=== PATIENT | female | born 1960 | race American Indian/Alaskan Native ===

== ENCOUNTER 2017-06-05 18:09 | Emergency (ER) | payer OTHER ==
[2017-06-05] MEDS ORDERED: MOTRIN PO ONE (20:42)
[2017-06-05] MEDS ORDERED: TESSALON PERLES PO ONE (20:42)
[2017-06-05] MEDS ORDERED: DUONEB *Not for PRN Use IH ONE (21:32)
--- NOTE | 2017-06-05 21:36 | Emergency Department Report ---
- General Chief Complaint: Upper Respiratory Infection Stated Complaint: FLI LIKE SX Time Seen by Provider: 06/05/17 20:42 Source: patient Mode of arrival: Ambulatory Limitations: No Limitations - History of Present Illness Initial Comments: This is a 56-year-old female nontoxic, well nourished in appearance, no acute signs of distress presents to the ED with c/o of nonproductive cough, body aches , rhinorrhea, fever, chills, wheezing, nasal congestion x2 days. Patient denies any recent travels, long car, recent hospital stays. Patient denies any calf pain or calf tenderness. Patient denies any chest pain, short of breath, fever, chills, nausea, vomiting, hemoptysis, numbness, tingling, headache or stiff neck. Patient denies any drug allergies. Patient stated PMH includes COPD. Denies any drug allergies. MD Complaint: fever, cough, rhinorrhea, nasal congestion, other (body aches, wheezing) -: days(s) (2) Severity: mild Severity scale (0 -10): 8 Quality: aching Consistency: constant Improves With: nothing Worsens With: nothing Associated Symptoms: fever, chills, rhinorrhea, nasal congestion, cough. denies : myalgias, diaphoresis, headache, sore throat, stiff neck, chest pain, shortness of breath, abdominal pain, nausea, vomiting, diarrhea, dysuria, rash, confusion, right sweats, weight loss, epistaxis, hoarseness, ear pain Treatments Prior to Arrival: none - Related Data Previous Rx's Medication Instructions Recorded Last Taken Type Albuterol Sulfate [Ventolin HFA] 2 puff IH Q4H PRN #1 hfa.aer.ad 08/10/14 Unknown Rx Ipratropium/Albuterol Sulfate 1 ampul IH Q6HRT PRN #30 ampul.neb 08/10/14 Unknown Rx [DUONEB *Not for PRN Use*] Nicotine [Habitrol] 14 mg TD QDAY #7 patch 08/10/14 Unknown Rx Prednisone 20 mg PO QDAY #5 tablet 08/10/14 Unknown Rx Tiotropium [Spiriva] 18 mcg IH QDAY 30 Days box 08/10/14 Unknown Rx HYDROcodone/APAP 7.5-325 [[place] 1 each PO Q8HR PRN #12 tablet 02/27/16 Unknown Rx 7.5-325 mg TAB] ALBUTEROL Inhaler [ProAir HFA 2 puff IH QID PRN #1 inhalation 06/05/17 Unknown Rx Inhaler] Azithromycin [Zithromax Z-LAURI] 250 mg PO DAILY #6 tablet 06/05/17 Unknown Rx Benzonatate [Tessalon Perle] 100 mg PO Q6H PRN #20 capsule 06/05/17 Unknown Rx Ibuprofen [Motrin] 600 mg PO Q8H PRN #30 tablet 06/05/17 Unknown Rx Oseltamivir [Tamiflu] 75 mg PO BID #14 cap 06/05/17 Unknown Rx predniSONE [Deltasone] 40 mg PO QDAY #5 tab 06/05/17 Unknown Rx Allergies Allergy/AdvReac Type Severity Reaction Status Date / Time No Known Allergies Allergy Verified 08/08/14 10:17 ED Review of Systems ROS: Stated complaint: FLI LIKE SX Other details as noted in HPI Constitutional: chills, fever Eyes: denies: eye pain, eye discharge, vision change ENT: denies: ear pain, throat pain Respiratory: cough, wheezing. denies: shortness of breath Cardiovascular: denies: chest pain, palpitations Endocrine: no symptoms reported Gastrointestinal: denies: abdominal pain, nausea, diarrhea Genitourinary: denies: urgency, dysuria, discharge Musculoskeletal: denies: back pain, joint swelling, arthralgia Skin: denies: rash, lesions Neurological: denies: headache, weakness, paresthesias Psychiatric: denies: anxiety, depression Hematological/Lymphatic: denies: easy bleeding, easy bruising ED Past Medical Hx - Past Medical History Previous Medical History?: Yes Hx Congestive Heart Failure: No Hx Diabetes: No Hx of Cancer: Yes (cervical) Hx Asthma: No Hx COPD: Yes Additional medical history: BRONCHITIS - Surgical History Past Surgical History?: Yes Additional Surgical History: HYSTERECTOMY - Social History Smoking Status: Current Every Day Smoker Substance Use Type: Marijuana - Medications Home Medications: Home Medications Medication Instructions Recorded Confirmed Last Taken Type Albuterol Sulfate [Ventolin HFA] 2 puff IH Q4H PRN #1 hfa.aer.ad 08/10/14 Unknown Rx Ipratropium/Albuterol Sulfate 1 ampul IH Q6HRT PRN #30 ampul.neb 08/10/14 Unknown Rx [DUONEB *Not for PRN Use*] Nicotine [Habitrol] 14 mg TD QDAY #7 patch 08/10/14 Unknown Rx Prednisone 20 mg PO QDAY #5 tablet 08/10/14 Unknown Rx Tiotropium [Spiriva] 18 mcg IH QDAY 30 Days box 08/10/14 Unknown Rx HYDROcodone/APAP 7.5-325 [[place] 1 each PO Q8HR PRN #12 tablet 02/27/16 Unknown Rx 7.5-325 mg TAB] ALBUTEROL Inhaler [ProAir HFA 2 puff IH QID PRN #1 inhalation 06/05/17 Unknown Rx Inhaler] Azithromycin [Zithromax Z-LAURI] 250 mg PO DAILY #6 tablet 06/05/17 Unknown Rx Benzonatate [Tessalon Perle] 100 mg PO Q6H PRN #20 capsule 06/05/17 Unknown Rx Ibuprofen [Motrin] 600 mg PO Q8H PRN #30 tablet 06/05/17 Unknown Rx Oseltamivir [Tamiflu] 75 mg PO BID #14 cap 06/05/17 Unknown Rx predniSONE [Deltasone] 40 mg PO QDAY #5 tab 06/05/17 Unknown Rx ED Physical Exam - General Limitations: No Limitations General appearance: alert, in no apparent distress - Head Head exam: Present: atraumatic, normocephalic, normal inspection - Eye Eye exam: Present: normal appearance, PERRL, EOMI. Absent: scleral icterus, conjunctival injection, nystagmus, periorbital swelling, periorbital tenderness Pupils: Present: normal accommodation - ENT ENT exam: Present: normal exam, normal orophraynx, mucous membranes moist, TM's normal bilaterally, normal external ear exam - Neck Neck exam: Present: normal inspection, full ROM. Absent: tenderness, meningismus, lymphadenopathy, thyromegaly - Respiratory Respiratory exam: Present: normal lung sounds bilaterally, wheezes (bilateral upper and lower lobes). Absent: respiratory distress, rales, rhonchi, stridor, chest wall tenderness, accessory muscle use, decreased breath sounds, prolonged expiratory - Cardiovascular Cardiovascular Exam: Present: regular rate, normal rhythm, tachycardia, normal heart sounds. Absent: irregular rhythm, systolic murmur, diastolic murmur, rubs , gallop - GI/Abdominal GI/Abdominal exam: Present: soft, normal bowel sounds. Absent: distended, tenderness, guarding, rebound, rigid, diminished bowel sounds - Rectal Rectal exam: Present: deferred - Extremities Exam Extremities exam: Present: normal inspection, full ROM, normal capillary refill. Absent: tenderness, pedal edema, joint swelling, calf tenderness - Back Exam Back exam: Present: normal inspection, full ROM. Absent: tenderness, CVA tenderness (R), CVA tenderness (L), muscle spasm, paraspinal tenderness, vertebral tenderness, rash noted - Neurological Exam Neurological exam: Present: alert, oriented X3, CN II-XII intact, normal gait, reflexes normal - Psychiatric Psychiatric exam: Present: normal affect, normal mood - Skin Skin exam: Present: warm, dry, intact, normal color. Absent: rash ED Course Vital Signs 06/05/17 06/05/17 06/05/17 18:28 21:18 21:48 Temperature 100.4 F H Pulse Rate 91 H Pulse Rate [ 77 Anterior Bilateral Throughout] Respiratory 20 18 Rate Respiratory 20 Rate [Anterior Bilateral Throughout] Blood Pressure 149/69 Blood Pressure [Right] O2 Sat by Pulse 99 Oximetry 06/05/17 23:26 Temperature 100.0 F H Pulse Rate 76 Pulse Rate [ Anterior Bilateral Throughout] Respiratory 16 Rate Respiratory Rate [Anterior Bilateral Throughout] Blood Pressure Blood Pressure 115/54 [Right] O2 Sat by Pulse 96 Oximetry - Reevaluation(s) Reevaluation #1: 06/05/17 21:36 Patient is speaking in full sentences with no signs of distress noted. ED Medical Decision Making - Lab Data Result diagrams: 06/05/17 21:35 06/05/17 21:35 - Medical Decision Making This is a 56-year-old female that presents with upper respiratory infection and asthma exacerbation. Patient is stable and was examined by me. Chest x-ray has been obtained and dictated by radiologist with normal exam. Patient is notified of x-ray results with no questions noted. Labs within normal limits. PAtient stated feels much better after DuoNeb and Solu-Medrol and wheezing has subsided upon auscultation post medical treatment. Due to patient having symptoms of influenza and upper respiratory infection I will treat patient empirically with Tamiflu and zpak. Patient was instructed to increase hydration , rest and take Motrin for fever episodes. Patient received Motrin and tesslone perrls in the ED. Vitals stable. Patient is nonfebrile and normal heart rate. Patient was orally hydrated and patient tolerated well known nausea or vomiting. Patient was instructed Follow-up with a primary care doctor in 3- 5 days or if symptoms worsen and continue return to emergency room as soon as possible. At time time of discharge, the patient does not seem toxic or ill in appearance. No acute signs of distress noted. Patient agrees to discharge treatment plan of care. No further questions noted by the patient. Critical care attestation.: If time is entered above; I have spent that time in minutes in the direct care of this critically ill patient, excluding procedure time. ED Disposition Clinical Impression: Influenza Upper respiratory infection Qualifiers: URI type: unspecified URI Qualified Code(s): J06.9 - Acute upper respiratory infection, unspecified Asthma exacerbation Qualifiers: Asthma severity: mild Asthma persistence: unspecified Qualified Code(s): J45.901 - Unspecified asthma with (acute) exacerbation Disposition: TO HOME OR SELFCARE Is pt being admited?: No Does the pt Need Aspirin: No Condition: Stable Instructions: Asthma (ED), Influenza (ED), Upper Respiratory Infection (ED) Additional Instructions: Follow-up with a primary care doctor in 3-5 days or if symptoms worsen and continue return to emergency room as soon as possible. Increase rest, hydration and take Motrin for fever episodes. Prescriptions: ALBUTEROL Inhaler [ProAir HFA Inhaler] 2 puff IH QID PRN #1 inhalation PRN Reason: Shortness Of Breath Azithromycin [Zithromax Z-LAURI] 250 mg PO DAILY #6 tablet Benzonatate [Tessalon Perle] 100 mg PO Q6H PRN #20 capsule PRN Reason: Cough Ibuprofen [Motrin] 600 mg PO Q8H PRN #30 tablet PRN Reason: Fever Oseltamivir [Tamiflu] 75 mg PO BID #14 cap predniSONE [Deltasone] 40 mg PO QDAY #5 tab Referrals: PRIMARY CAREMD [Primary Care Provider] - 3-5 Days HEMAL CORTEZ MD [Staff Physician] - 3-5 Days [facility] [Outside] - 3-5 Days [facility] [Outside] - 3-5 Days Forms: Work/School Release Form(ED)
[2017-06-05 21:47] LABS: Hematocrit 40.3 % (30.3-42.9); Hemoglobin 14.1 gm/dl (10.1-14.3); Mean Corpuscular HGB Conc 35 % (30-34); Mean Corpuscular Hemoglobin 29 pg (28-32); Mean Corpuscular Volume 82 fl (79-97); Platelet Count 186 K/mm3 (140-440); Red Blood Count 4.89 M/mm3 (3.65-5.03); Red Cell Distribution Width 14.6 % (13.2-15.2)
--- NOTE | 2017-06-05 22:02 | XRay Report ---
FINAL REPORT EXAM: XR CHEST ROUTINE 2V HISTORY: cough TECHNIQUE: Two view chest PA and lateral PRIORS: None. FINDINGS: Cardiac and mediastinal contours are unremarkable. No focal pulmonary infiltrate is identified. No pleural fluid collection seen. Pulmonary vasculature is unremarkable. IMPRESSION: Negative two-view chest
[2017-06-05 22:04] LABS: BUN/Creatinine Ratio 17; Blood Urea Nitrogen 10 mg/dL (7-17); Calcium 9.1 mg/dL (8.4-10.2); Hemolysis Index 1
[2017-06-05 22:54] LABS: Basophils % (Manual) 0 % (0.0-1.8); Eosinophils % (Manual) 0 % (0.0-4.3); Total Cells Counted 100
[2017-06-05 22:55] LABS: Anisocytosis 1+; Platelet Estimate Consistent w Auto; Poikilocytosis Few
[2017-06-05 23:26] VITALS: BP 115/54
[2017-06-05] MEDS ORDERED: TYLENOL PO ONE (23:28)
== END 2017-06-06 00:40 | disposition home or self-care (01) ==
LOC: ED 18:09
DX: J11.1 Influenza due to unidentified influenza virus with other respiratory manifestations (principal); J45.901 Unspecified asthma with (acute) exacerbation; J06.9 Acute upper respiratory infection, unspecified; F17.200 Nicotine dependence, unspecified, uncomplicated; F12.10 Cannabis abuse, uncomplicated
CPT/HCPCS: 36415; 71046; 80048; 82140; 82550; 85007; 85025; 94640; 96372; 99284; J2930

== ENCOUNTER 2018-07-08 08:16 | Inpatient (IN) | payer OTHER ==
[2018-07-08] MEDS ORDERED: PROVENTIL IH ONE ×2 (08:30→08:40)
[2018-07-08] MEDS ORDERED: ATROVENT IH ONE ×2 (08:30→08:40)
[2018-07-08] MEDS ORDERED: MAGNESIUM SULFATE 2GM/50ML 2 GM/50 ML BAG IV ONE ×2 (08:30→08:40)
--- NOTE | 2018-07-08 08:50 | XRay Report ---
AP CHEST :07/08/18 08:16:00 CLINICAL: Difficulty breathing. Productive cough. COMPARISON:08/08/14 FINDINGS: Normal heart and pulmonary vasculature. The lungs are normally expanded and clear. The bones and soft tissues are normal. IMPRESSION: No acute cardiopulmonary process.
--- NOTE | 2018-07-08 09:16 | Emergency Department Report ---
ED General Adult HPI - General Chief complaint: Adult Asthma Stated complaint: DIFFICULTY BREATHING Time Seen by Provider: 07/08/18 08:45 Source: patient, EMS Mode of arrival: Stretcher Limitations: No Limitations - History of Present Illness Initial comments: Patient presents to emergency department with difficulty in breathing. Patient has a history of COPD and states his symptoms started last night. Patient endorses multiple sick contacts at home and include her grandchildren who go to daycare. Patient received 1 albuterol treatment and Solu-Medrol in route via EMS. Patient reports just generally not feeling well. Patient denies chest pain, abdominal pain, headache. Patient is using accessory muscles to breathe and the wheezing is audible when entering room. Patient states she is using her nebulizer every 4 hours at home to no Avail -: Gradual Severity scale (0 -10): 0 Consistency: constant Improves with: none Worsens with: none Associated Symptoms: denies other symptoms Treatments Prior to Arrival: none - Related Data Previous Rx's Medication Instructions Recorded Last Taken Type Ipratropium/Albuterol Sulfate 1 ampul IH Q6HRT PRN #30 ampul.neb 08/10/14 Unknown Rx [DUONEB *Not for PRN Use*] ALBUTEROL Inhaler (OR & NICU) 2 puff IH QID PRN #1 inhalation 06/05/17 Unknown Rx [ProAir HFA Inhaler] Allergies Allergy/AdvReac Type Severity Reaction Status Date / Time No Known Allergies Allergy Verified 08/08/14 10:17 ED Review of Systems ROS: Stated complaint: DIFFICULTY BREATHING Other details as noted in HPI Comment: All other systems reviewed and negative Constitutional: denies: chills, fever Eyes: denies: eye pain, eye discharge, vision change ENT: denies: ear pain, throat pain Respiratory: wheezing. denies: cough, shortness of breath Cardiovascular: denies: chest pain, palpitations Endocrine: no symptoms reported Gastrointestinal: denies: abdominal pain, nausea, diarrhea Genitourinary: denies: urgency, dysuria, discharge Musculoskeletal: denies: back pain, joint swelling, arthralgia Skin: denies: rash, lesions Neurological: denies: headache, weakness, paresthesias Psychiatric: denies: anxiety, depression Hematological/Lymphatic: denies: easy bleeding, easy bruising ED Past Medical Hx - Past Medical History Previous Medical History?: Yes Hx Congestive Heart Failure: No Hx Diabetes: No Hx Asthma: Yes Hx COPD: Yes Additional medical history: BRONCHITIS - Surgical History Past Surgical History?: Yes Additional Surgical History: HYSTERECTOMY - Social History Smoking Status: Former Smoker Substance Use Type: None - Medications Home Medications: Home Medications Medication Instructions Recorded Confirmed Last Taken Type Ipratropium/Albuterol Sulfate 1 ampul IH Q6HRT PRN #30 ampul.neb 08/10/14 07/08/18 Unknown Rx [DUONEB *Not for PRN Use*] ALBUTEROL Inhaler (OR & NICU) 2 puff IH QID PRN #1 inhalation 06/05/17 07/08/18 Unknown Rx [ProAir HFA Inhaler] ED Physical Exam - General Limitations: No Limitations General appearance: alert, in no apparent distress - Head Head exam: Present: atraumatic, normocephalic - Eye Eye exam: Present: normal appearance, PERRL, EOMI - ENT ENT exam: Present: mucous membranes moist - Neck Neck exam: Present: normal inspection - Respiratory Respiratory exam: Present: normal lung sounds bilaterally, wheezes. Absent: respiratory distress, rales, rhonchi - Cardiovascular Cardiovascular Exam: Present: regular rate, normal rhythm. Absent: systolic murmur, diastolic murmur, rubs, gallop - GI/Abdominal GI/Abdominal exam: Present: soft, normal bowel sounds - Extremities Exam Extremities exam: Present: normal inspection - Back Exam Back exam: Present: normal inspection - Neurological Exam Neurological exam: Present: alert, oriented X3, CN II-XII intact. Absent: motor sensory deficit - Psychiatric Psychiatric exam: Present: normal affect, normal mood - Skin Skin exam: Present: warm, dry, intact, normal color. Absent: rash ED Course Vital Signs 07/08/18 07/08/18 07/08/18 08:17 08:42 09:30 Temperature 98.2 F Pulse Rate 73 68 Respiratory 30 H 30 H 24 Rate Blood Pressure 127/73 Blood Pressure 139/66 [Left] O2 Sat by Pulse 97 98 97 Oximetry 07/08/18 07/08/18 10:20 11:42 Temperature Pulse Rate 67 66 Respiratory 18 24 Rate Blood Pressure Blood Pressure 134/69 121/65 [Left] O2 Sat by Pulse 98 99 Oximetry ED Medical Decision Making - Lab Data Result diagrams: 07/08/18 09:23 07/08/18 09:23 Lab Results 07/08/18 07/08/18 Range/Units 09:23 09:23 WBC 9.8 (4.5-11.0) K/mm3 RBC 5.07 H (3.65-5.03) M/mm3 Hgb 14.5 H (10.1-14.3) gm/dl Hct 41.6 (30.3-42.9) % MCV 82 (79-97) fl MCH 29 (28-32) pg MCHC 35 H (30-34) % RDW 13.9 (13.2-15.2) % Plt Count 240 (140-440) K/mm3 Lymph % (Auto) 13.8 (13.4-35.0) % [place] % (Auto) 4.4 (0.0-7.3) % Eos % (Auto) 0.1 (0.0-4.3) % Baso % (Auto) 0.1 (0.0-1.8) % Lymph # 1.4 (1.2-5.4) K/mm3 [place] # 0.4 (0.0-0.8) K/mm3 Eos # 0.0 (0.0-0.4) K/mm3 Baso # 0.0 (0.0-0.1) K/mm3 Seg Neutrophils % 81.6 H (40.0-70.0) % Seg Neutrophils # 8.0 H (1.8-7.7) K/mm3 Sodium 138 (137-145) mmol/L Potassium 3.2 L (3.6-5.0) mmol/L Chloride 100.2 (98-107) mmol/L Carbon Dioxide 25 (22-30) mmol/L Anion Gap 16 mmol/L BUN 7 (7-17) mg/dL Creatinine 0.6 L (0.7-1.2) mg/dL Estimated GFR > 60 ml/min BUN/Creatinine Ratio 12 % Glucose 136 H (65-100) mg/dL Calcium 9.0 (8.4-10.2) mg/dL Magnesium 2.70 H (1.7-2.3) mg/dL Total Bilirubin 1.10 (0.1-1.2) mg/dL AST 17 (5-40) units/L ALT 8 (7-56) units/L Alkaline Phosphatase 73 (35-129) units/L Total Protein 6.9 (6.3-8.2) g/dL Albumin 0.2 L (3.9-5) g/dL Albumin/Globulin Ratio 0.0 % - Radiology Data Radiology results: report reviewed Critical care attestation.: If time is entered above; I have spent that time in minutes in the direct care of this critically ill patient, excluding procedure time. ED Disposition Clinical Impression: COPD exacerbation Disposition: OP ADMIT IP TO THIS HOSP Is pt being admited?: Yes Does the pt Need Aspirin: No Condition: Stable Instructions: Chronic Obstructive Pulmonary Disease (ED) Referrals: BAYLEE ROMERO MD [Referring] - 3-5 Days
[2018-07-08 09:39] LABS: Basophils % (Auto) 0.1 % (0.0-1.8); Eosinophils % (Auto) 0.1 % (0.0-4.3); Hematocrit 41.6 % (30.3-42.9); Hemoglobin 14.5 gm/dl (10.1-14.3); Lymphocytes # (Auto) 1.4 K/mm3 (1.2-5.4); Lymphocytes % (Auto) 13.8 % (13.4-35.0); Mean Corpuscular HGB Conc 35 % (30-34); Mean Corpuscular Volume 82 fl (79-97); Monocytes # (Auto) 0.4 K/mm3 (0.0-0.8); Monocytes % (Auto) 4.4 % (0.0-7.3); Platelet Count 240 K/mm3 (140-440); Red Blood Count 5.07 M/mm3 (3.65-5.03); Red Cell Distribution Width 13.9 % (13.2-15.2)
[2018-07-08 09:56] LABS: Alanine Aminotransferase 8 units/L (7-56); Albumin 0.2 g/dL (3.9-5); BUN/Creatinine Ratio 12; Blood Urea Nitrogen 7 mg/dL (7-17); Hemolysis Index 4
[2018-07-08] MEDS ORDERED: MAGNESIUM SULFATE 1 GM in NACL 0.9% 50 ML IV ONE (10:00)
[2018-07-08] MEDS ORDERED: AFLURIA QUAD 2018-2019 SYRINGE IM ONE (18:35)
[2018-07-08] MEDS ORDERED: PNEUMOVAX 23 IM ONE (18:35)
[2018-07-08] MEDS ORDERED: MILK OF MAGNESIA PO PRN (20:05)
[2018-07-08] MEDS: ROBITUSSIN AC PO PRN (20:37)
[2018-07-08] MEDS: COLACE PO SCH (21:18)
[2018-07-08] MEDS ORDERED: ZOFRAN IV PRN (22:09)
[2018-07-08] MEDS ORDERED: SODIUM CHLORIDE FLUSH SYRINGE 10 ML IV PRN (22:09)
[2018-07-08] MEDS ORDERED: TYLENOL PO PRN (22:09)
[2018-07-08] MEDS ORDERED: PERCOCET 5/325 PO PRN (22:09)
[2018-07-08] MEDS ORDERED: DILAUDID IV PRN (22:09)
--- NOTE | 2018-07-08 22:18 | History and Physical Report ---
History of Present Illness Date of examination: 07/08/18 Date of admission: 07/08/18 12:53 Medications and Allergies Allergies Allergy/AdvReac Type Severity Reaction Status Date / Time No Known Allergies Allergy Verified 08/08/14 10:17 Home Medications Medication Instructions Recorded Confirmed Last Taken Type Ipratropium/Albuterol Sulfate 1 ampul IH Q6HRT PRN #30 ampul.neb 08/10/14 07/08/18 Unknown Rx [DUONEB *Not for PRN Use*] ALBUTEROL Inhaler (OR & NICU) 2 puff IH QID PRN #1 inhalation 06/05/17 07/08/18 Unknown Rx [ProAir HFA Inhaler] Active Meds: Active Medications Acetaminophen (Tylenol) 650 mg PO Q4H PRN PRN Reason: Pain MILD(1-3)/Fever >100.5/JERRY Docusate Sodium (Colace) 100 mg PO BID SONAM Last Admin: 07/08/18 21:18 Dose: 100 mg Documented by: Famotidine (Pepcid) 20 mg PO BID SONAM Hydromorphone HCl (Dilaudid) 0.5 mg IV Q3H PRN PRN Reason: Pain , Severe (7-10) Magnesium Hydroxide (Milk Of Magnesia) 30 ml PO Q4H PRN PRN Reason: Constipation Last Admin: 07/08/18 20:37 Dose: 30 ml Documented by: Ondansetron HCl (Zofran) 4 mg IV Q8H PRN PRN Reason: Nausea And Vomiting Oxycodone/Acetaminophen (Percocet 5/325) 1 tab PO Q6H PRN PRN Reason: Pain, Moderate (4-6) Pneumococcal Polyvalent Vaccine (Pneumovax 23) 0.5 ml IM .ONCE ONE Stop: 07/09/18 12:01 Pseudoephedrine/Acetam/Chlorphenir (Robitussin Ac) 10 ml PO Q4H PRN PRN Reason: Cough Last Admin: 07/08/18 20:37 Dose: 10 ml Documented by: Sodium Chloride (Sodium Chloride Flush Syringe 10 Ml) 10 ml IV BID SONAM Sodium Chloride (Sodium Chloride Flush Syringe 10 Ml) 10 ml IV PRN PRN PRN Reason: LINE FLUSH Exam - Constitutional Vitals: Temp Pulse Resp BP Pulse Ox 98.2 F 58 L 18 125/72 100 07/08/18 18:54 07/08/18 20:48 07/08/18 20:48 07/08/18 18:54 07/08/18 20:48 Results - Labs CBC & Chem 7: 07/08/18 09:23 07/08/18 09:23 Labs: Laboratory Last Values WBC 9.8 K/mm3 (4.5-11.0) 07/08/18 09:23 RBC 5.07 M/mm3 (3.65-5.03) H 07/08/18 09:23 Hgb 14.5 gm/dl (10.1-14.3) H 07/08/18 09:23 Hct 41.6 % (30.3-42.9) 07/08/18 09:23 MCV 82 fl (79-97) 07/08/18 09:23 MCH 29 pg (28-32) 07/08/18 09:23 MCHC 35 % (30-34) H 07/08/18 09:23 RDW 13.9 % (13.2-15.2) 07/08/18 09:23 Plt Count 240 K/mm3 (140-440) 07/08/18 09:23 Lymph % (Auto) 13.8 % (13.4-35.0) 07/08/18 09:23 [place] % (Auto) 4.4 % (0.0-7.3) 07/08/18 09:23 Eos % (Auto) 0.1 % (0.0-4.3) 07/08/18 09:23 Baso % (Auto) 0.1 % (0.0-1.8) 07/08/18 09:23 Lymph # 1.4 K/mm3 (1.2-5.4) 07/08/18 09:23 [place] # 0.4 K/mm3 (0.0-0.8) 07/08/18 09:23 Eos # 0.0 K/mm3 (0.0-0.4) 07/08/18 09:23 Baso # 0.0 K/mm3 (0.0-0.1) 07/08/18 09:23 Seg Neutrophils % 81.6 % (40.0-70.0) H 07/08/18 09:23 Seg Neutrophils # 8.0 K/mm3 (1.8-7.7) H 07/08/18 09:23 Sodium 138 mmol/L (137-145) 07/08/18 09:23 Potassium 3.2 mmol/L (3.6-5.0) L 07/08/18 09:23 Chloride 100.2 mmol/L (98-107) 07/08/18 09:23 Carbon Dioxide 25 mmol/L (22-30) 07/08/18 09:23 Anion Gap 16 mmol/L 07/08/18 09:23 BUN 7 mg/dL (7-17) 07/08/18 09:23 Creatinine 0.6 mg/dL (0.7-1.2) L 07/08/18 09:23 Estimated GFR > 60 ml/min 07/08/18 09:23 BUN/Creatinine Ratio 12 % 07/08/18 09:23 Glucose 136 mg/dL (65-100) H 07/08/18 09:23 Calcium 9.0 mg/dL (8.4-10.2) 07/08/18 09:23 Magnesium 2.70 mg/dL (1.7-2.3) H 07/08/18 09:23 Total Bilirubin 1.10 mg/dL (0.1-1.2) 07/08/18 09:23 AST 17 units/L (5-40) 07/08/18 09:23 ALT 8 units/L (7-56) 07/08/18 09:23 Alkaline Phosphatase 73 units/L (35-129) 07/08/18 09:23 Total Protein 6.9 g/dL (6.3-8.2) 07/08/18 09:23 Albumin 0.2 g/dL (3.9-5) L 07/08/18 09:23 Albumin/Globulin Ratio 0.0 % 07/08/18 09:23 Assessment and Plan Advance Directives: Yes (full code) VTE prophylaxis?: Chemical Plan of care discussed with patient/family: Yes - Patient Problems (1) COPD exacerbation Current Visit: No Status: Acute
[2018-07-08] MEDS ORDERED: PROVENTIL IH PRN (22:19)
[2018-07-08] MEDS: SOLU-Medrol IV SCH (23:08)
[2018-07-08] MEDS: SODIUM CHLORIDE FLUSH SYRINGE 10 ML IV SCH (23:09)
[2018-07-09] MEDS: ROBITUSSIN AC PO PRN (05:40)
[2018-07-09] MEDS: SOLU-Medrol IV SCH ×3 (05:41→21:44)
--- NOTE | 2018-07-09 05:45 | Event Note ---
Date: 07/08/18 See dictated H/p in reports COPD exacerbation Resp failure
[2018-07-09] MEDS ORDERED: K-DUR PO ONE (06:08)
--- NOTE | 2018-07-09 07:18 | History and Physical Report ---
CHIEF COMPLAINT: Increasing shortness of breath since last night. HISTORY OF PRESENT ILLNESS: A 57-year-old female presents with increasing shortness of breath and wheezing and respiratory distress since last night. The patient exposed to multiple children who were sick and who go to daycare. No fever. The patient has been wheezing and also in moderate respiratory distress. Oxygen saturations were low when the EMS arrived. No fever or chills. No recent travel. PAST MEDICAL HISTORY: Significant for COPD and asthma and bronchitis. CURRENT MEDICATIONS: DuoNebs and albuterol. PAST SURGICAL HISTORY: Hysterectomy in the past. SOCIAL HISTORY: Former smoker, stopped smoking in the last few years. FAMILY HISTORY: Hypertension. REVIEW OF SYSTEMS: Shortness of breath and increasing wheezing present. Moderate respiratory distress present. Needing oxygen. Otherwise, review of systems negative. PHYSICAL EXAMINATION: GENERAL: Elderly female, cooperative during examination. VITAL SIGNS: Blood pressure is 125/51. Temperature is 98.7. Pulse is 57. Respirations are 16. Sats are 97. HEENT: Unremarkable. NECK: Accessory muscles of respiration are prominent. LUNGS: Bilateral inspiratory and expiratory rhonchi present. CARDIOVASCULAR SYSTEM: S1, S2 heard. No gallop, no murmur, no rub. Apical impulse in left fifth intercostal space in midclavicular line. ABDOMEN: Soft and benign. No hepatosplenomegaly. No guarding, no rigidity. Hernial orifices are normal. EXTREMITIES: Good pedal pulses. No pedal edema. CENTRAL NERVOUS SYSTEM: Alert and oriented x 4, nonfocal exam. SKIN: Normal. LABORATORY DATA: White count is 9800. H and H is 14.5 and 41.6. Platelet count is 240,000. Sodium is 138. Potassium is 5.2. BUN and creatinine is 7 and 0.6. Glucose is 136. A1c is 5.4. Magnesium is 2.7. AST is 17. ALT is 8. Albumin is 0.2. DIAGNOSTIC DATA: Chest x-ray shows no infiltrate. No acute cardiopulmonary process. No EKG done. ASSESSMENT AND PLAN: 1. Acute respiratory failure with hypoxia. The patient was ordered to get the ABG which was not done in spite of ordering twice. The patient initiated on DuoNebs and Solu-Medrol and IV ceftriaxone and Zithromax. BiPAP if necessary. Intubation if necessary. Pneumococcal vaccine ordered. 2. Hypokalemia- supplemented. 3. Chronic obstructive pulmonary disease exacerbation, DuoNebs and IV antibiotics and IV Solu-Medrol. 4.Deep venous thrombosis prophylaxis, Lovenox 40 mg subcutaneous daily. JOB# [id number] BAKARI/MAGALYS VARGAS
[2018-07-09] MEDS: DUONEB *Not for PRN Use IH SCH ×4 (08:13→20:33)
[2018-07-09] MEDS: ROCEPHIN/NS 2 GM/100 ML 2 GM/100 ML BAG IV SCH (10:07)
[2018-07-09] MEDS: COLACE PO SCH ×2 (10:07→21:42)
[2018-07-09] MEDS: PEPCID PO SCH ×2 (10:07→21:43)
[2018-07-09] MEDS: SODIUM CHLORIDE FLUSH SYRINGE 10 ML IV SCH ×2 (10:19→21:43)
--- NOTE | 2018-07-09 10:44 | Consultation ---
History of Present Illness Consult date: 07/09/18 Reason for consult: dyspnea, cough History of present illness: PULMONARY AND CRITICAL CARE CONSULTATION. DR. ENNIS THANK YOU FOR ASKING US TO PARTICIPATE IN THE CARE OF THIS PATIENT. Patient presents to emergency department with difficulty in breathing. Patient has a history of COPD and states his symptoms started last night. Patient endorses multiple sick contacts at home and include her grandchildren who go to daycare. Patient received 1 albuterol treatment and Solu-Medrol in route via EMS. Patient reports just generally not feeling well. Patient denies chest pain, abdominal pain, headache. Patient is using accessory muscles to breathe and the wheezing is audible when entering room. Patient states she is using her nebulizer every 4 hours at home .Patient has heavy history of smoking 1 pack x 45 years.Patient says stopped smoking 2 months ago.Patient works as cook. P atient denies allergies to the medications. and has 3 children. Patient presently on 2 litres O2 and O2 saturation 98%.Patient still has mild wheezing. Past History Past Medical History: COPD Medications and Allergies Allergies Allergy/AdvReac Type Severity Reaction Status Date / Time No Known Allergies Allergy Verified 08/08/14 10:17 Home Medications Medication Instructions Recorded Confirmed Last Taken Type Ipratropium/Albuterol Sulfate 1 ampul IH Q6HRT PRN #30 ampul.neb 08/10/14 07/08/18 Unknown Rx [DUONEB *Not for PRN Use*] ALBUTEROL Inhaler (OR & NICU) 2 puff IH QID PRN #1 inhalation 06/05/17 07/08/18 Unknown Rx [ProAir HFA Inhaler] Active Meds: Active Medications Acetaminophen (Tylenol) 650 mg PO Q4H PRN PRN Reason: Pain MILD(1-3)/Fever >100.5/JERRY Albuterol (Proventil) 2.5 mg IH Q4HRT PRN PRN Reason: Shortness Of Breath Albuterol/Ipratropium (Duoneb *Not For Prn Use*) 1 ampul IH QIDRT [facility] Last Admin: 07/09/18 08:13 Dose: 1 ampul Documented by: Docusate Sodium (Colace) 100 mg PO BID [facility] Last Admin: 07/09/18 10:07 Dose: 100 mg Documented by: Enoxaparin Sodium (Lovenox) 40 mg SUB-Q QDAY@2200 SONAM Famotidine (Pepcid) 20 mg PO BID [facility] Last Admin: 07/09/18 10:07 Dose: 20 mg Documented by: Hydromorphone HCl (Dilaudid) 0.5 mg IV Q3H PRN PRN Reason: Pain , Severe (7-10) Azithromycin 500 mg/ Sodium (Chloride) 250 mls @ 250 mls/hr IV Q24HR [facility] Ceftriaxone Sodium (Rocephin/Ns 2 Gm/100 Ml) 2 gm in 100 mls @ 200 mls/hr IV Q24HR [facility]; Protocol Last Admin: 07/09/18 10:07 Dose: 200 mls/hr Documented by: Magnesium Hydroxide (Milk Of Magnesia) 30 ml PO Q4H PRN PRN Reason: Constipation Last Admin: 07/08/18 20:37 Dose: 30 ml Documented by: Methylprednisolone Sodium Succinate (Solu-Medrol) 40 mg IV Q8HR [facility] Last Admin: 07/09/18 05:41 Dose: 40 mg Documented by: Ondansetron HCl (Zofran) 4 mg IV Q8H PRN PRN Reason: Nausea And Vomiting Oxycodone/Acetaminophen (Percocet 5/325) 1 tab PO Q6H PRN PRN Reason: Pain, Moderate (4-6) Last Admin: 07/08/18 23:11 Dose: 1 tab Documented by: Pneumococcal Polyvalent Vaccine (Pneumovax 23) 0.5 ml IM .ONCE ONE Stop: 07/09/18 12:01 Pseudoephedrine/Acetam/Chlorphenir (Robitussin Ac) 10 ml PO Q4H PRN PRN Reason: Cough Last Admin: 07/09/18 05:40 Dose: 10 ml Documented by: Sodium Chloride (Sodium Chloride Flush Syringe 10 Ml) 10 ml IV BID [facility] Last Admin: 07/09/18 10:19 Dose: 10 ml Documented by: Sodium Chloride (Sodium Chloride Flush Syringe 10 Ml) 10 ml IV PRN PRN PRN Reason: LINE FLUSH Review of Systems All systems: negative Physical Examination Vital signs: Vital Signs Temp Pulse Resp BP Pulse Ox 98.2 F 73 30 H 127/73 97 07/08/18 08:17 07/08/18 08:17 07/08/18 08:17 07/08/18 08:17 07/08/18 08:17 General appearance: alert, appears uncomfortable, other (Still has mild w heezing.) Eyes: non-icteric ENT: oropharynx moist Neck: supple, no JVD Ascultation: Bilateral: wheezes, rhonchi Cardiovascular: regular rate and rhythm Gastrointestinal: normoactive bowel sounds, soft, non-tender Integumentary: normal Extremities: no cyanosis, no edema Musculoskeletal: no deformities Gait: normal gait normal mental status, non-focal exam, pupils equal and round, CN II-XII normal mood appropriate Results - Laboratory Findings CBC and BMP: 07/08/18 09:23 07/08/18 09:23 Abnormal lab findings: Abnormal Labs 07/08/18 07/08/18 09:23 09:23 RBC 5.07 H Hgb 14.5 H MCHC 35 H Seg Neutrophils % 81.6 H Seg Neutrophils # 8.0 H Potassium 3.2 L Creatinine 0.6 L Glucose 136 H Magnesium 2.70 H Albumin 0.2 L - Diagnostic Findings Chest x-ray: report reviewed (No acute cardiopulmonary process.), image reviewed Assessment and Plan Patient presents to emergency department with difficulty in breathing. Patient has a history of COPD and states his symptoms started last night. Patient endorses multiple sick contacts at home and include her grandchildren who go to daycare. Patient received 1 albuterol treatment and Solu-Medrol in route via EMS. Patient reports just generally not feeling well. Patient denies chest pain, abdominal pain, headache. Patient is using accessory muscles to breathe and the wheezing is audible when entering room. 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 and has 3 children. Patient presently on 2 litres O2 and O2 saturation 98%.Patient still has mild wheezing. - Patient Problems (1) COPD exacerbation Current Visit: Yes Status: Acute Plan to address problem: O2 2 litres via nasal canula. Albuterol/atrovent aerosol treatments q 6 hours. Continue I/V solumedrol. Continue S/C Lovenox Continue Famotidine. ABGs on room air. PFTs as Out patient. (2) Syncope Current Visit: No Status: Acute Plan to address problem: Management as per primary care. (3) Acute bronchitis Current Visit: Yes Status: Acute Plan to address problem: Patient is on zithromax and ceftrioxone.
[2018-07-09] MEDS ORDERED: AFLURIA QUAD 2018-2019 SYRINGE IM ONE (12:00)
[2018-07-09] MEDS ORDERED: PNEUMOVAX 23 IM ONE (12:00)
[2018-07-09] MEDS: ZITHROMAX 500 MG in NACL 0.9% 250ML 250 ML IV SCH (12:40)
--- NOTE | 2018-07-09 15:41 | Progress Note ---
Assessment and Plan Assessment and plan: Acute respiratory failure COPD exacerbation - Patient is on IV Solu-Medrol, antibiotics, oxygen support, nebulizer treatment - Chest x-ray is normal - Patient is still in distress and did swell more day of IV Solu-Medrol DVT prophylaxis - On Lovenox Disposition - Continue inpatient care, possible discharge tomorrow History Interval history: Patient was seen and evaluated this morning, patient was in mild respiratory distress. Hospitalist Physical - Physical exam Narrative exam: Not in cardiopulmonary distress. The patient appeared well nourished and normally developed. Vital signs as documented. Head exam is unremarkable. No scleral icterus . Neck is without jugular venous distension, thyromegaly, or carotid bruits. Lungs scattered wheezing all over the chest. Cardiac exam reveals regular rate and Rhythm. First and second heart sounds normal. No murmurs, rubs or gallops. Abdominal exam reveals normal bowel sounds, no masses, no organomegaly and no aortic enlargement. Extremities are nonedematous and both femoral and pedal pulses are normal. INTERNAL AFFAIRS INVESTIGATOR: Alert and oriented 3. No focal weakness. - Constitutional Vitals: Temp Pulse Resp BP Pulse Ox 98.2 F 92 H 20 129/59 98 07/09/18 12:25 07/09/18 13:33 07/09/18 13:33 07/09/18 12:25 07/09/18 12:25 Results - Labs CBC & Chem 7: 07/08/18 09:23 07/08/18 09:23 Labs: Laboratory Last Values WBC 9.8 K/mm3 (4.5-11.0) 07/08/18 09:23 RBC 5.07 M/mm3 (3.65-5.03) H 07/08/18 09:23 Hgb 14.5 gm/dl (10.1-14.3) H 07/08/18 09:23 Hct 41.6 % (30.3-42.9) 07/08/18 09:23 MCV 82 fl (79-97) 07/08/18 09:23 MCH 29 pg (28-32) 07/08/18 09:23 MCHC 35 % (30-34) H 07/08/18 09:23 RDW 13.9 % (13.2-15.2) 07/08/18 09:23 Plt Count 240 K/mm3 (140-440) 07/08/18 09:23 Lymph % (Auto) 13.8 % (13.4-35.0) 07/08/18 09:23 [place] % (Auto) 4.4 % (0.0-7.3) 07/08/18 09:23 Eos % (Auto) 0.1 % (0.0-4.3) 07/08/18 09:23 Baso % (Auto) 0.1 % (0.0-1.8) 07/08/18 09:23 Lymph # 1.4 K/mm3 (1.2-5.4) 07/08/18 09:23 [place] # 0.4 K/mm3 (0.0-0.8) 07/08/18 09:23 Eos # 0.0 K/mm3 (0.0-0.4) 07/08/18 09:23 Baso # 0.0 K/mm3 (0.0-0.1) 07/08/18 09:23 Seg Neutrophils % 81.6 % (40.0-70.0) H 07/08/18 09:23 Seg Neutrophils # 8.0 K/mm3 (1.8-7.7) H 07/08/18 09:23 Sodium 138 mmol/L (137-145) 07/08/18 09:23 Potassium 3.2 mmol/L (3.6-5.0) L 07/08/18 09:23 Chloride 100.2 mmol/L (98-107) 07/08/18 09:23 Carbon Dioxide 25 mmol/L (22-30) 07/08/18 09:23 Anion Gap 16 mmol/L 07/08/18 09:23 BUN 7 mg/dL (7-17) 07/08/18 09:23 Creatinine 0.6 mg/dL (0.7-1.2) L 07/08/18 09:23 Estimated GFR > 60 ml/min 07/08/18 09:23 BUN/Creatinine Ratio 12 % 07/08/18 09:23 Glucose 136 mg/dL (65-100) H 07/08/18 09:23 Hemoglobin A1c 5.4 % (4-6) 07/08/18 22:37 Calcium 9.0 mg/dL (8.4-10.2) 07/08/18 09:23 Magnesium 2.70 mg/dL (1.7-2.3) H 07/08/18 09:23 Total Bilirubin 1.10 mg/dL (0.1-1.2) 07/08/18 09:23 AST 17 units/L (5-40) 07/08/18 09:23 ALT 8 units/L (7-56) 07/08/18 09:23 Alkaline Phosphatase 73 units/L (35-129) 07/08/18 09:23 Total Protein 6.9 g/dL (6.3-8.2) 07/08/18 09:23 Albumin 0.2 g/dL (3.9-5) L 07/08/18 09:23 Albumin/Globulin Ratio 0.0 % 07/08/18 09:23
[2018-07-09] MEDS: LOVENOX SUB-Q SCH (21:42)
[2018-07-10] MEDS: SOLU-Medrol IV SCH ×3 (05:40→22:05)
[2018-07-10] MEDS: ROBITUSSIN AC PO PRN (06:41)
[2018-07-10] MEDS: DUONEB *Not for PRN Use IH SCH ×3 (09:51→19:38)
--- NOTE | 2018-07-10 09:52 | Progress Note ---
Assessment and Plan Acute hypoxemic respiratory failure AE-COPD, unknown FEV1 h/o Tobacco use disorder, 45Pack year history, quit 2 months ago Hypokalemia, probably secondary to bronchodilator therapy -Supplemental oxygen to keep O2 sats 88-90%, wean as tolerated -Steroids -Bronchodilators -VTE prophylaxis -Antibiotics for severe AE-COPD -Increase activity as tolerated -Smoking cessation counselling done at the bedside, encouraged to remain quit -Chronic home medications Accuchecks with glycemic control while on steroids. Target blood glucose of 140-180mg/dL -Continue azithromycin for anti-inflammatory properties -Replace potassium, keep at 4mEq/dL Discussed care plan with hospitalist. Updated patient, answered all her questions Pulmonary outpatient follow up on discharge Subjective Date of service: 07/10/18 Interval history: Follow up: Acute hypoxic respiratory failure: AE-COPD Seen and examined. Vitals, labs, medications, chart and imaging reviewed. No acute overnight events. Continues to require supplemental oxygen. has a cough and ongoing shortness of breath. However states she is generally much improved. Denies any chest pain, no fevers, no chills. Denies any diarrhea, no nausea or vomiting Objective Vital Signs - 12hr 07/10/18 07/10/18 00:10 05:41 Temperature 98.4 F 98.4 F Pulse Rate 65 58 L Respiratory 20 20 Rate Blood Pressure 119/69 124/69 O2 Sat by Pulse 99 99 Oximetry Constitutional: alert, appears uncomfortable, other (Still has mild wheezing.) Eyes: non-icteric ENT: oropharynx moist Neck: supple, no JVD Effort: mildly labored Ascultation: Bilateral: wheezes, rhonchi Cardiovascular: regular rate and rhythm, other (S1,S2) Gastrointestinal: normoactive bowel sounds, soft, non-tender Integumentary: normal Extremities: no cyanosis, no edema Neurologic: normal mental status, non-focal exam, pupils equal and round, CN II- XII normal, motor strength normal and Psychiatric: mood appropriate, affect normal CBC and BMP: 07/08/18 09:23 07/08/18 09:23 ABG, PT/INR, D-dimer: ABG POC ABG pH 7.448 (7.35-7.45) 07/08/18 23:51 POC ABG pCO2 38.8 (35-45) 07/08/18 23:51 POC ABG pO2 103 (80-105) 07/08/18 23:51 POC ABG HCO3 26.8 (22-26 mml/L) 07/08/18 23:51 POC ABG Total CO2 28 (23-27mmol/L) 07/08/18 23:51 POC ABG O2 Sat 98 07/08/18 23:51 Abnormal lab findings: Abnormal Labs 07/08/18 07/08/18 09:23 09:23 RBC 5.07 H Hgb 14.5 H MCHC 35 H Seg Neutrophils % 81.6 H Seg Neutrophils # 8.0 H Potassium 3.2 L Creatinine 0.6 L Glucose 136 H Magnesium 2.70 H Albumin 0.2 L Chest x-ray: image reviewed (Hyperinflated, no infiltrates) Allied health notes reviewed: nursing
[2018-07-10] MEDS: COLACE PO SCH ×2 (10:17→22:04)
[2018-07-10] MEDS: PEPCID PO SCH ×2 (10:18→22:04)
[2018-07-10] MEDS: SODIUM CHLORIDE FLUSH SYRINGE 10 ML IV SCH ×2 (10:18→22:05)
[2018-07-10] MEDS: ROCEPHIN/NS 2 GM/100 ML 2 GM/100 ML BAG IV SCH (10:49)
[2018-07-10] MEDS: ZITHROMAX 500 MG in NACL 0.9% 250ML 250 ML IV SCH (10:49)
--- NOTE | 2018-07-10 13:59 | Progress Note ---
Assessment and Plan Assessment and plan: Acute respiratory failure COPD exacerbation - Patient is on IV Solu-Medrol, antibiotics, oxygen support, nebulizer treatment - Chest x-ray is normal - Patient is still in respiratory distress DVT prophylaxis - On Lovenox Disposition - Continue inpatient care, possible discharge tomorrow History Interval history: Patient was seen and evaluated this morning, patient was in mild respiratory distress. patient had a lot of wheezing. Hospitalist Physical - Physical exam Narrative exam: Not in cardiopulmonary distress. The patient appeared well nourished and normally developed. Vital signs as documented. Head exam is unremarkable. No scleral icterus . Neck is without jugular venous distension, thyromegaly, or carotid bruits. Lungs wheezing all over the chest. Cardiac exam reveals regular rate and Rhythm. Abdominal exam reveals normal bowel sounds. Extremities are nonedematous and both femoral and pedal pulses are normal. MOLD BUNCH TRIMMER: Alert and oriented 3. No focal weakness. - Constitutional Vitals: Temp Pulse Resp BP Pulse Ox 97.8 F 56 L 18 120/64 96 07/10/18 12:22 07/10/18 12:22 07/10/18 12:22 07/10/18 12:22 07/10/18 12:22 Results - Labs CBC & Chem 7: 07/08/18 09:23 07/08/18 09:23 Labs: Laboratory Last Values WBC 9.8 K/mm3 (4.5-11.0) 07/08/18 09:23 RBC 5.07 M/mm3 (3.65-5.03) H 07/08/18 09:23 Hgb 14.5 gm/dl (10.1-14.3) H 07/08/18 09:23 Hct 41.6 % (30.3-42.9) 07/08/18 09:23 MCV 82 fl (79-97) 07/08/18 09:23 MCH 29 pg (28-32) 07/08/18 09:23 MCHC 35 % (30-34) H 07/08/18 09:23 RDW 13.9 % (13.2-15.2) 07/08/18 09:23 Plt Count 240 K/mm3 (140-440) 07/08/18 09:23 Lymph % (Auto) 13.8 % (13.4-35.0) 07/08/18 09:23 [place] % (Auto) 4.4 % (0.0-7.3) 07/08/18 09:23 Eos % (Auto) 0.1 % (0.0-4.3) 07/08/18 09: Baso % (Auto) 0.1 % (0.0-1.8) 07/08/18 09:23 Lymph # 1.4 K/mm3 (1.2-5.4) 07/08/18 09: [place] # 0.4 K/mm3 (0.0-0.8) 07/08/18 09:23 Eos # 0.0 K/mm3 (0.0-0.4) 07/08/18 09: Baso # 0.0 K/mm3 (0.0-0.1) 07/08/18 09: Seg Neutrophils % 81.6 % (40.0-70.0) H 07/08/18 09: Seg Neutrophils # 8.0 K/mm3 (1.8-7.7) H 07/08/18 09:23 POC ABG pH 7.417 (7.35-7.45) 07/10/18 10:19 POC ABG pCO2 39.8 (35-45) 07/10/18 10:19 POC ABG pO2 71 (80-105) L 07/10/18 10:19 POC ABG HCO3 25.6 (22-26 mml/L) 07/10/18 10:19 POC ABG Total CO2 27 (23-27mmol/L) 07/10/18 10:19 POC ABG O2 Sat 94 07/10/18 10:19 POC ABG Base Excess 1 ((-2) - (+3)mmol/L) 07/10/18 10:19 FiO2 21 % 07/10/18 10:19 Sodium 138 mmol/L (137-145) 07/08/18 09:23 Potassium 3.2 mmol/L (3.6-5.0) L 07/08/18 09:23 Chloride 100.2 mmol/L (98-107) 07/08/18 09:23 Carbon Dioxide 25 mmol/L (22-30) 07/08/18 09:23 Anion Gap 16 mmol/L 07/08/18 09:23 BUN 7 mg/dL (7-17) 07/08/18 09:23 Creatinine 0.6 mg/dL (0.7-1.2) L 07/08/18 09:23 Estimated GFR > 60 ml/min 07/08/18 09:23 BUN/Creatinine Ratio 12 % 07/08/18 09:23 Glucose 136 mg/dL (65-100) H 07/08/18 09:23 Hemoglobin A1c 5.4 % (4-6) 07/08/18 22:37 Calcium 9.0 mg/dL (8.4-10.2) 07/08/18 09:23 Magnesium 2.70 mg/dL (1.7-2.3) H 07/08/18 09:23 Total Bilirubin 1.10 mg/dL (0.1-1.2) 07/08/18 09:23 AST 17 units/L (5-40) 07/08/18 09:23 ALT 8 units/L (7-56) 07/08/18 09:23 Alkaline Phosphatase 73 units/L (35-129) 07/08/18 09:23 Total Protein 6.9 g/dL (6.3-8.2) 07/08/18 09:23 Albumin 0.2 g/dL (3.9-5) L 07/08/18 09:23 Albumin/Globulin Ratio 0.0 % 07/08/18 09:23
[2018-07-10] MEDS: LOVENOX SUB-Q SCH (22:04)
[2018-07-11] MEDS: DUONEB *Not for PRN Use IH SCH ×2 (02:26→08:36)
[2018-07-11] MEDS: SOLU-Medrol IV SCH (05:51)
[2018-07-11] MEDS: ZITHROMAX 500 MG in NACL 0.9% 250ML 250 ML IV SCH (09:59)
[2018-07-11] MEDS: ROCEPHIN/NS 2 GM/100 ML 2 GM/100 ML BAG IV SCH (09:59)
[2018-07-11] MEDS: COLACE PO SCH (10:00)
[2018-07-11] MEDS: PEPCID PO SCH (10:00)
[2018-07-11] MEDS: SODIUM CHLORIDE FLUSH SYRINGE 10 ML IV SCH (10:00)
--- NOTE | 2018-07-11 10:28 | Discharge Summary ---
Providers - Providers Date of Admission: 07/08/18 12:53 Attending physician: DARIUS DEL VALLE MD 07/08/18 22:09 Consult to Physician [CONS] Routine Comment: Consulting Provider: RAMIRO REYES Physician Instructions: Reason For Exam: Pleural effusion Primary care physician: DEFENSIVE SECONDARY COACH Hospitalization Reason for admission: COPD exacerbation Condition: Stable Pertinent studies: Chest x-ray; Normal Hospital course: 57 year old -[place] female with past medical history significant for COPD presented to the department with complaints of worsening of shortness of breath and cough. Patient claimed Multiple family members has flulike symptoms. Patient Used her nebulizer with out relief and presented to the ED. patient was admitted to the floor for the management of respiratory failure Secondary to COPD exacerbation. Patient was treated appropriately for COPD exacerbation and showed improvement. Pulmonary consult appreciated. Patient was hemodynamically stable at the time of discharge. Patient was evaluated for home O2 but didn't qualify. Appropriate medications scripts were given at the time of discharge. Disposition: DC-01 TO HOME OR SELFCARE Time spent for discharge: 32 minutes - Discharge Diagnoses (1) Acute bronchitis Status: Acute (2) COPD exacerbation Status: Acute (3) Difficulty breathing Status: Acute (4) Syncope Status: Acute Core Measure Documentation - Palliative Care Palliative Care/ Comfort Measures: Not Applicable - Core Measures Any of the following diagnoses?: none Exam - Physical Exam Narrative exam: Not in cardiopulmonary distress. The patient appeared well nourished and normally developed. Vital signs as documented. Head exam is unremarkable. No scleral icterus . Neck is without jugular venous distension, thyromegaly, or carotid bruits. Lungs clear to auscultation bilaterally. Cardiac exam reveals regular rate and Rhythm. Abdominal exam reveals normal bowel sounds. Extremities are nonedematous and both femoral and pedal pulses are normal. FACEPIECE LINE SUPERVISOR: Alert and oriented 3. No focal weakness. - Constitutional Vitals: Temp Pulse Resp BP Pulse Ox 97.6 F 48 L 20 120/69 96 07/11/18 00:56 07/11/18 10:00 07/11/18 05:53 07/11/18 05:53 07/11/18 05:53 Plan Activity: no restrictions Weight Bearing Status: Full Weight Bearing Diet: regular Follow up with: BAYLEE ROMERO MD [Referring] - 3-5 Days Prescriptions: RX: Azithromycin 250 mg PO DAILY #3 tablet RX: Ipratropium/Albuterol Sulfate [DUONEB *Not for PRN Use*] 1 ampul IH Q6HRT PRN #30 ampul.neb PRN Reason: Shortness Of Breath Prednisone [predniSONE 10 mg (6-Day Pack, 21 Tabs)] 10 mg PO .TAPER #1 tab.ds.pk RX: ALBUTEROL Inhaler (OR & NICU) [ProAir HFA Inhaler] 2 puff IH QID PRN #1 inhalation PRN Reason: Shortness Of Breath
--- NOTE | 2018-07-11 10:34 | Progress Note ---
Assessment and Plan Acute hypoxemic respiratory failure AE-COPD, unknown FEV1 h/o Tobacco use disorder, 45Pack year history, quit 2 months ago Hypokalemia, probably secondary to bronchodilator therapy -Supplemental oxygen to keep O2 sats 88-90%, wean as tolerated -Steroids -Bronchodilators -VTE prophylaxis -Antibiotics for severe AE-COPD -Increase activity as tolerated -Smoking cessation counselling done at the bedside, encouraged to remain quit -Chronic home medications Accuchecks with glycemic control while on steroids. Target blood glucose of 140-180mg/dL -Continue azithromycin for anti-inflammatory properties -Replace potassium, keep at 4mEq/dL Discussed care plan with hospitalist. Updated patient, answered all her questions Pulmonary outpatient follow up on discharge Subjective Date of service: 07/11/18 Interval history: Follow up: Acute hypoxic respiratory failure: AE-COPD Seen and examined. Vitals, labs, medications, chart and imaging reviewed. No acute overnight events. Continues to require supplemental oxygen. has a cough and ongoing shortness of breath. However states she is generally much improved. Denies any chest pain, no fevers, no chills. Denies any diarrhea, no nausea or vomiting Objective Vital Signs - 12hr 07/11/18 07/11/18 07/11/18 00:56 05:53 10:00 Temperature 97.6 F Pulse Rate 46 L 58 L Pulse Rate [ 48 L Apical] Respiratory 20 20 Rate Blood Pressure 120/62 120/69 O2 Sat by Pulse 95 96 Oximetry Constitutional: alert, appears uncomfortable, other (Still has mild wheezing.) Eyes: non-icteric ENT: oropharynx moist Neck: supple, no JVD Effort: mildly labored Ascultation: Bilateral: wheezes, rhonchi Cardiovascular: regular rate and rhythm, other (S1,S2) Gastrointestinal: normoactive bowel sounds, soft, non-tender Integumentary: normal Extremities: no cyanosis, no edema Neurologic: normal mental status, non-focal exam, pupils equal and round, CN II- XII normal, motor strength normal and Psychiatric: mood appropriate, affect normal CBC and BMP: 07/08/18 09:23 07/08/18 09:23 ABG, PT/INR, D-dimer: ABG POC ABG pH 7.417 (7.35-7.45) 07/10/18 10:19 POC ABG pCO2 39.8 (35-45) 07/10/18 10:19 POC ABG pO2 71 (80-105) L 07/10/18 10:19 POC ABG HCO3 25.6 (22-26 mml/L) 07/10/18 10:19 POC ABG Total CO2 27 (23-27mmol/L) 07/10/18 10:19 POC ABG O2 Sat 94 07/10/18 10:19 Abnormal lab findings: Abnormal Labs 07/08/18 07/08/18 07/10/18 09:23 09:23 10:19 RBC 5.07 H Hgb 14.5 H MCHC 35 H Seg Neutrophils % 81.6 H Seg Neutrophils # 8.0 H POC ABG pO2 71 L Potassium 3.2 L Creatinine 0.6 L Glucose 136 H Magnesium 2.70 H Albumin 0.2 L Allied health notes reviewed: nursing
[2018-07-11 13:17] VITALS: BP 126/71
== END 2018-07-11 13:35 | disposition home or self-care (01) | DRG 189 ==
LOC: ED 08:16 → 4A 12:53 → ED 12:55 → 4A 16:38 → 3A 07-09 20:42
PROVIDERS: ADMIT Internal Medicine; ATTEND Internal Medicine
PROC: 4A033R1 Measurement of Arterial Saturation, Peripheral, Percutaneous Approach (ICD-10-PCS; principal; 2018-07-08)
PROC: 3E0234Z Introduction of Serum, Toxoid and Vaccine into Muscle, Percutaneous Approach (ICD-10-PCS; 2018-07-09)
DX: J96.01 Acute respiratory failure with hypoxia (principal); J44.1 Chronic obstructive pulmonary disease with (acute) exacerbation; J44.0 Chronic obstructive pulmonary disease with (acute) lower respiratory infection; J20.9 Acute bronchitis, unspecified; E87.6 Hypokalemia; R55 Syncope and collapse; Z23 Encounter for immunization; Z90.710 Acquired absence of both cervix and uterus; Z87.891 Personal history of nicotine dependence; Z71.6 Tobacco abuse counseling
CPT/HCPCS: 36415; 36600; 71045; 80053; 82803; 83036; 83735; 85025; 90686; 90732; 94640; 94760; G0378; J0456; J0696; J1650; J2930; J3475; J7050